=== PATIENT | male | born 1990 | race Two or more races ===

== ENCOUNTER 2021-10-11 13:49 | Inpatient (IN) | payer OTHER ==
[~2021-10-11] VITALS: Ht 165.1 cm; Wt 65.0 kg
[2021-10-11 14:23] LABS: BASOPHILS % (AUTO) 0.4 % (0.0-2.0); EOSINOPHILS % (AUTO) 0.5 % (1.0-6.0); HEMATOCRIT 45.6 % (41-53); HEMOGLOBIN 15.6 g/dL (13.5-17.5); LYMPHOCYTES # (AUTO) 1.8 K/uL (1.0-4.8); LYMPHOCYTES % (AUTO) 18.5 % (22.0-44.0); MEAN CORPUSCULAR HEMOGLOBIN 30.3 pg (26.0-34.0); MEAN CORPUSCULAR HGB CONC 34.3 G/dL (31.0-37.0); MEAN CORPUSCULAR VOLUME 88 fL (80-100); MONOCYTES # (AUTO) 0.7 K/uL (0.1-1.0); MONOCYTES % (AUTO) 7.6 % (2.0-9.0); PLATELET COUNT (AUTO) 236 K/uL (150-450); RED BLOOD CELL COUNT(AUTO) 5.16 MIL/uL (4.50-5.90); RED CELL DISTRIBUTION WIDTH 12.9 % (11.5-14.5)
[2021-10-11] MEDS ORDERED: ACETAMINOPHEN 325 MG TABLET PO PRN (14:30)
[2021-10-11] MEDS ORDERED: ONDANSETRON HCL 4 MG/2 ML VIAL IVP PRN (14:30)
[2021-10-11 14:33] LABS: ANION GAP 15 mmol/L (8-16); CALCIUM, TOTAL 9.2 mg/dL (8.8-10.5); CARBON DIOXIDE 24 mmol/L (22-29); CHLORIDE 100 mmol/L (98-107); CREATININE 1.12 mg/dL (0.60-1.30); GLOMERULAR FILTR. RATE CALC > 60 mL/min (>60); GLUCOSE,RANDOM 98 mg/dL (70-110); POTASSIUM 3.5 mmol/L (3.5-5.1); SODIUM SERUM 139 mmol/L (136-145); UREA NITROGEN, BLOOD 23 mg/dL (7-18)
[2021-10-11 14:36] LABS: COVID AG,FIA SOURCE NASOPHARYNGEAL
[2021-10-11 14:39] LABS: ALANINE AMINOTRANSFERASE 21 U/L (12-78); ALBUMIN 4.1 g/dL (3.4-5.0); ALKALINE PHOSPHATASE 88 U/L (46-116); ASPARTATE AMINOTRANSFERASE 21 U/L (15-37); BILIRUBIN,TOTAL 0.6 mg/dL (0.1-1.0); CHOL/HDL RATIO 4.5 (4.2-7.3); CHOLESTEROL 156 mg/dL (131-200); HDL CHOLESTEROL 35 mg/dL (40-60); LDL CHOL (CALC.) 103 mg/dL (0-130); TOTAL PROTEIN, SERUM 8.3 g/dL (6.4-8.2); TRIGLYCERIDES 90 mg/dL (15-150)
[2021-10-11 15:02] LABS: FREE T4 (FREE THYROXINE) 1.47 ng/dL (0.76-1.46); THYROID STIMULATING HORMONE 1.69 uIU/mL (0.36-3.74)
[2021-10-11 16:49] VITALS: BP 126/77
[2021-10-11] MEDS ORDERED: INFLUENZA VIRUS VACCINE QVS 2021-22 (6MO+)/PF 60 MCG/0.5 ML SYRINGE IM. ONE (21:15)
[2021-10-11] MEDS: FAMOTIDINE 20 MG TABLET PO SCH (21:20)
[2021-10-11] MEDS: DOCUSATE SODIUM 100 MG CAPSULE PO SCH (21:20)
[2021-10-11 22:19] VITALS: BP 115/77
[2021-10-11] MEDS: LORazepam 1 MG TABLET PO PRN (23:23)
[2021-10-12 01:41] VITALS: BP 110/70
[2021-10-12 05:09] VITALS: BP 115/72
[2021-10-12] MEDS: FAMOTIDINE 20 MG TABLET PO SCH ×2 (08:35→21:00)
[2021-10-12] MEDS: DOCUSATE SODIUM 100 MG CAPSULE PO SCH ×2 (08:35→21:00)
[2021-10-12 08:36] VITALS: BP 117/70
[2021-10-12] MEDS: LORazepam 1 MG TABLET PO PRN (14:46)
[2021-10-12 14:48] LABS: AMPHET/METH SCREEN,URINE NEGATIVE (NEGATIVE); BARBITURATE SCREEN, URINE NEGATIVE (NEGATIVE); BENZODIAZEPINES SCREEN,URINE NEGATIVE (NEGATIVE); CANNABINOID SCREEN,URINE NEGATIVE (NEGATIVE); COCAINE SCREEN,URINE NEGATIVE (NEGATIVE); METHADONE SCREEN, URINE NEGATIVE (NEGATIVE); OPIATE SCREEN,URINE NEGATIVE (NEGATIVE)
[2021-10-12 14:50] LABS: PHENCYCLIDINE SCREEN,URINE NEGATIVE (NEGATIVE)
[2021-10-12 19:34] VITALS: BP 112/73
[2021-10-13 04:10] VITALS: BP 117/74
[2021-10-13 07:38] LABS: BASOPHILS % (AUTO) 0.5 % (0.0-2.0); EOSINOPHILS % (AUTO) 1.9 % (1.0-6.0); HEMATOCRIT 45.5 % (41-53); HEMOGLOBIN 15.8 g/dL (13.5-17.5); LYMPHOCYTES # (AUTO) 1.9 K/uL (1.0-4.8); LYMPHOCYTES % (AUTO) 33.8 % (22.0-44.0); MEAN CORPUSCULAR HEMOGLOBIN 30.9 pg (26.0-34.0); MEAN CORPUSCULAR HGB CONC 34.8 G/dL (31.0-37.0); MEAN CORPUSCULAR VOLUME 89 fL (80-100); MONOCYTES # (AUTO) 0.6 K/uL (0.1-1.0); MONOCYTES % (AUTO) 10.4 % (2.0-9.0); NEUTROPHILS % (AUTO) 53.4 % (40.0-70.0); PLATELET COUNT (AUTO) 191 K/uL (150-450); RED BLOOD CELL COUNT(AUTO) 5.11 MIL/uL (4.50-5.90); RED CELL DISTRIBUTION WIDTH 13.3 % (11.5-14.5)
[2021-10-13 07:54] LABS: ANION GAP 13 mmol/L (8-16); CALCIUM, TOTAL 8.8 mg/dL (8.8-10.5); CARBON DIOXIDE 25 mmol/L (22-29); CHLORIDE 102 mmol/L (98-107); CREATININE 1.11 mg/dL (0.60-1.30); GLOMERULAR FILTR. RATE CALC > 60 mL/min (>60); GLUCOSE,RANDOM 87 mg/dL (70-110); POTASSIUM 3.7 mmol/L (3.5-5.1); SODIUM SERUM 140 mmol/L (136-145); UREA NITROGEN, BLOOD 17 mg/dL (7-18)
[2021-10-13 08:01] VITALS: BP 108/73
[2021-10-13] MEDS: FAMOTIDINE 20 MG TABLET PO SCH ×2 (09:17→21:00)
[2021-10-13] MEDS: DOCUSATE SODIUM 100 MG CAPSULE PO SCH ×2 (09:17→21:00)
[2021-10-13] MEDS: RisperiDONE 1 MG TABLET PO SCH (21:00)
[2021-10-14] MEDS: FAMOTIDINE 20 MG TABLET PO SCH ×2 (08:47→20:30)
[2021-10-14] MEDS: DOCUSATE SODIUM 100 MG CAPSULE PO SCH ×2 (08:47→20:30)
[2021-10-14] MEDS: RisperiDONE 1 MG TABLET PO SCH ×2 (08:47→20:30)
[2021-10-14 09:10] VITALS: BP 120/71
[2021-10-14 19:45] VITALS: BP 128/81
[2021-10-15] MEDS ORDERED: HALOPERIDOL LACTATE 5 MG/ML VIAL IM ONE (02:15)
[2021-10-15 04:45] VITALS: BP 117/70
[2021-10-15] MEDS: DOCUSATE SODIUM 100 MG CAPSULE PO SCH ×2 (08:33→19:40)
[2021-10-15] MEDS: FAMOTIDINE 20 MG TABLET PO SCH ×2 (08:33→19:40)
[2021-10-15] MEDS: RisperiDONE 1 MG TABLET PO SCH ×2 (08:33→19:40)
[2021-10-15 09:20] VITALS: BP 121/82
[2021-10-15 15:51] VITALS: BP 119/78
[2021-10-15] MEDS: LORazepam 1 MG TABLET PO PRN (19:40)
[2021-10-15 19:55] VITALS: BP 108/62
[2021-10-16 04:50] VITALS: BP 120/84
[2021-10-16 08:00] VITALS: BP 120/76
[2021-10-16] MEDS: DOCUSATE SODIUM 100 MG CAPSULE PO SCH (08:27)
[2021-10-16] MEDS: RisperiDONE 1 MG TABLET PO SCH (08:27)
[2021-10-16] MEDS: FAMOTIDINE 20 MG TABLET PO SCH (08:27)
== END 2021-10-16 14:15 | DRG 885 ==
LOC: EMS 13:54 → 6S 15:40
PROVIDERS: ADMIT Internal Medicine; ATTEND Internal Medicine
DX: F23 Brief psychotic disorder (principal); F41.9 Anxiety disorder, unspecified; F12.11 Cannabis abuse, in remission; Z20.822 Contact with and (suspected) exposure to COVID-19; Z87.891 Personal history of nicotine dependence
CPT/HCPCS: 71045; 74018; 74176; 80048; 80053; 80061; 84439; 84443; 85025; 99285; G0480; J1630; J2405; 36415-L1; 36415-TC

== ENCOUNTER 2021-10-16 16:18 | Inpatient (IN) | payer OTHER ==
[~2021-10-16] VITALS: Ht 170.2 cm; Wt 61.4 kg
[2021-10-16 20:55] LABS: BASOPHILS % (AUTO) 0.5 % (0.0-2.0); EOSINOPHILS % (AUTO) 1.5 % (1.0-6.0); HEMATOCRIT 44.4 % (41-53); HEMOGLOBIN 15.2 g/dL (13.5-17.5); LYMPHOCYTES # (AUTO) 2.2 K/uL (1.0-4.8); LYMPHOCYTES % (AUTO) 29.8 % (22.0-44.0); MEAN CORPUSCULAR HEMOGLOBIN 30.2 pg (26.0-34.0); MEAN CORPUSCULAR HGB CONC 34.2 G/dL (31.0-37.0); MEAN CORPUSCULAR VOLUME 88 fL (80-100); MONOCYTES # (AUTO) 0.7 K/uL (0.1-1.0); MONOCYTES % (AUTO) 8.9 % (2.0-9.0); NEUTROPHILS # (AUTO) 4.4 K/uL (1.8-7.7); NEUTROPHILS % (AUTO) 59.3 % (40.0-70.0); PLATELET COUNT (AUTO) 219 K/uL (150-450); RED BLOOD CELL COUNT(AUTO) 5.02 MIL/uL (4.50-5.90)
[2021-10-16 21:04] LABS: ANION GAP 10 mmol/L (8-16); CARBON DIOXIDE 26 mmol/L (22-29); CHLORIDE 103 mmol/L (98-107); CREATININE 1.04 mg/dL (0.60-1.30); GLOMERULAR FILTR. RATE CALC > 60 mL/min (>60); GLUCOSE,RANDOM 108 mg/dL (70-110); POTASSIUM 3.5 mmol/L (3.5-5.1); SODIUM SERUM 139 mmol/L (136-145); UREA NITROGEN, BLOOD 21 mg/dL (7-18)
[2021-10-16 21:09] LABS: ALANINE AMINOTRANSFERASE 27 U/L (12-78); ALBUMIN 3.6 g/dL (3.4-5.0); ALKALINE PHOSPHATASE 84 U/L (46-116); ASPARTATE AMINOTRANSFERASE 18 U/L (15-37); BILIRUBIN,TOTAL 0.3 mg/dL (0.1-1.0)
[2021-10-16] MEDS ORDERED: ONDANSETRON HCL 4 MG/2 ML VIAL IVP PRN (22:45)
[2021-10-16] MEDS ORDERED: ACETAMINOPHEN 325 MG TABLET PO PRN (22:45)
[2021-10-16 22:46] LABS: AMPHET/METH SCREEN,URINE NEGATIVE (NEGATIVE); BARBITURATE SCREEN, URINE NEGATIVE (NEGATIVE); BENZODIAZEPINES SCREEN,URINE NEGATIVE (NEGATIVE); CANNABINOID SCREEN,URINE NEGATIVE (NEGATIVE); COCAINE SCREEN,URINE NEGATIVE (NEGATIVE); METHADONE SCREEN, URINE NEGATIVE (NEGATIVE); OPIATE SCREEN,URINE NEGATIVE (NEGATIVE)
[2021-10-16 22:47] LABS: PHENCYCLIDINE SCREEN,URINE NEGATIVE (NEGATIVE)
[2021-10-16] MEDS: HEPARIN SODIUM,PORCINE 5,000 UNITS/ML VIAL SQ SCH (23:29)
[2021-10-17 02:05] VITALS: BP 118/75
[2021-10-17 04:25] VITALS: BP 120/67
[2021-10-17 07:34] VITALS: BP 110/65
[2021-10-17] MEDS: HEPARIN SODIUM,PORCINE 5,000 UNITS/ML VIAL SQ SCH (08:00)
[2021-10-17] MEDS ORDERED: HALOPERIDOL LACTATE 5 MG/ML VIAL ONE (08:05)
[2021-10-17] MEDS ORDERED: DiphenhydrAMINE HCL 50 MG/ML VIAL ONE (08:05)
[2021-10-17] MEDS ORDERED: LORazepam 2 MG/ML VIAL ONE (08:06)
[2021-10-17] MEDS ORDERED: HALOPERIDOL LACTATE 5 MG/ML VIAL IM PRN (08:30)
[2021-10-17] MEDS ORDERED: LORazepam 2 MG/ML VIAL IM PRN (08:30)
[2021-10-17] MEDS ORDERED: DiphenhydrAMINE HCL 50 MG/ML VIAL IM PRN (08:30)
[2021-10-17] MEDS ORDERED: RisperiDONE 1 MG TABLET PO SCH ×2 (10:45)
[2021-10-17] MEDS: RisperiDONE 2 MG TABLET PO SCH ×2 (10:51→21:31)
[2021-10-17 15:58] VITALS: BP 106/70
[2021-10-17 20:14] VITALS: BP 112/65
[2021-10-17] MEDS ORDERED: RisperiDONE 2 MG TABLET PO SCH (21:00)
[2021-10-18 04:53] VITALS: BP 111/78
[2021-10-18 08:27] VITALS: BP 106/71
[2021-10-18] MEDS: RisperiDONE 2 MG TABLET PO SCH ×2 (10:56→21:09)
[2021-10-18 15:36] VITALS: BP 124/75
[2021-10-18 20:00] VITALS: BP 111/68
[2021-10-19 04:49] VITALS: BP 99/69
[2021-10-19 07:20] VITALS: BP 110/69
[2021-10-19] MEDS: RisperiDONE 2 MG TABLET PO SCH (07:27)
== END 2021-10-19 16:20 | DRG 885 ==
LOC: EMS 16:52 → 6S 10-17 01:00
PROVIDERS: ADMIT Internal Medicine; ATTEND Internal Medicine
DX: F25.9 Schizoaffective disorder, unspecified (principal); E44.0 Moderate protein-calorie malnutrition; Z68.21 Body mass index [BMI] 21.0-21.9, adult; F32.9 Major depressive disorder, single episode, unspecified; F41.9 Anxiety disorder, unspecified; H11.30 Conjunctival hemorrhage, unspecified eye; Z87.891 Personal history of nicotine dependence
CPT/HCPCS: 80053; 85025; 99285; G0480; J1200; J1630; J1644; J2060; J2405